=== PATIENT | female | born 1955 | race Two or more races ===

== ENCOUNTER 2022-05-17 12:19 | Outpatient (CLI) | payer OTHER | END 2022-05-17 12:21 | disposition home or self-care (01) | LOC: RAD 12:19 | PROVIDERS: ATTEND Internal Medicine | DX: I11.9 Hypertensive heart disease without heart failure (principal) ==

== ENCOUNTER 2024-12-15 19:01 | Emergency (ER) | payer OTHER ==
[~2024-12-15] VITALS: Ht 139.7 cm; Wt 62.1 kg
[2024-12-15] MEDS ORDERED: TOPROL XL50 M1 PO (19:17)
[2024-12-15] MEDS ORDERED: COZAAR100 MG PO (19:17)
[2024-12-15] MEDS ORDERED: SERTRALINE HCL100 MG PO (19:18)
[2024-12-15] MEDS ORDERED: ZOLOFT100 MG PO (19:18)
[2024-12-15 19:19] VITALS: BP 151/54; O2SAT 97
[2024-12-15] MEDS ORDERED: CHILDREN'S ASPI81 MG PO (19:19)
[2024-12-15] MEDS ORDERED: CRESTOR40 MG PO (19:19)
[2024-12-15] MEDS ORDERED: HYDROCHLOROTHIA25 MG PO (19:19)
[2024-12-15] MEDS ORDERED: KETOROLAC TROMETHAMINE 30 MG VIAL IM STA (20:33)
[2024-12-15] MEDS ORDERED: ORPHENADRINE CITRATE 30 MG/ML AMPUL IM STA (20:33)
[2024-12-15] MEDS ORDERED: KETOROLAC TROMETHAMINE 30 MG VIAL ONE (20:48)
[2024-12-15] MEDS ORDERED: ORPHENADRINE CITRATE 30 MG/ML AMPUL ONE (20:49)
== END 2024-12-15 20:57 | disposition home or self-care (01) ==
LOC: ER 19:04
DX: S46.819A Strain of other muscles, fascia and tendons at shoulder and upper arm level, unspecified arm, initial encounter (principal)
CPT/HCPCS: 96372; 99282; J1885; J2360

== ENCOUNTER 2024-12-28 12:38 | Outpatient (CLI) | payer OTHER ==
[~2024-12-28 12:38] MED LIST: CHILDREN'S ASPI81 MG PO; COZAAR100 MG PO; CRESTOR40 MG PO; HYDROCHLOROTHIA25 MG PO; SERTRALINE HCL100 MG PO; TOPROL XL50 M1 PO; ZOLOFT100 MG PO
== END 2024-12-28 12:42 | disposition home or self-care (01) ==
LOC: RAD 12:38
PROVIDERS: ATTEND Physical Medicine & Rehabilitation
DX: M54.2 Cervicalgia (principal)